=== PATIENT | female | born 1980 | race Caucasian/White ===

== ENCOUNTER 2017-06-16 00:06 | Inpatient (IN) | payer OTHER ==
[2017-06-16] MEDS ORDERED: ONDANSETRON 4 MG INJ IV (01:00)
[2017-06-16] MEDS: morphine 2 MG INJ IV ×4 (01:17→13:35)
[2017-06-16] MEDS: HYDROCODONE/APAP (5/325) TAB PO ×4 (02:02→19:15)
[2017-06-16] MEDS: SOD CHLORIDE 0.9% 1,000 ML IV ×2 (05:32→16:29)
[2017-06-16 05:58] LABS: ADD MAN DIFF? NO
[2017-06-16 06:05] LABS: BASOPHILS % 0.4 % (0.0-2.0); EOSINOPHILS # 0.2 10^3/ul (0.0-0.5); EOSINOPHILS % 2.5 % (0.0-7.0); HEMATOCRIT 34.2 % (37.0-47.0); HEMOGLOBIN 11.6 g/dl (12.0-16.0); LYMPHOCYTES # 2.8 10^3/ul (0.8-2.9); LYMPHOCYTES % 37.1 % (15.0-51.0); MEAN CORPUSCULAR HEMOGLOBIN 30.9 pg (29.0-33.0); MEAN CORPUSCULAR HGB CONC 33.9 g/dl (32.0-37.0); MEAN CORPUSCULAR VOLUME 91.2 fl (82.0-101.0); MEAN PLATELET VOLUME 10.2 fl (7.4-10.4); MONOCYTE # 0.5 10^3/ul (0.3-0.9); MONOCYTES % 6.8 % (0.0-11.0); NEUTROPHILS % 53.1 % (39.0-77.0); PLATELET COUNT 297 10^3/UL (140-415); RED BLOOD COUNT 3.75 10^6/ul (4.20-5.40)
[2017-06-16 06:05] LABS: WHITE BLOOD COUNT 7.5 10^3/ul (4.8-10.8)
[2017-06-16 06:27] LABS: ALANINE AMINOTRANSFERASE 23 IU/L (13-69); ALBUMIN 3.4 g/dl (3.3-4.9); ALBUMIN/GLOBULIN RATIO 0.97; ALKALINE PHOSPHATASE 83 IU/L (42-121); ANION GAP 15 (8-16); ASPARTATE AMINO TRANSFERASE 13 IU/L (15-46); BILIRUBIN,INDIRECT 0.1 mg/dl (0-1.1); BILIRUBIN,TOTAL 0.1 mg/dl (0.2-1.3); BLOOD UREA NITROGEN 11 mg/dl (7-20); CALCIUM 8.8 mg/dl (8.4-10.2); CARBON DIOXIDE 26 mmol/L (21-31); CHLORIDE 109 mmol/L (97-110); CREATININE 0.77 mg/dl (0.44-1.00); GLUCOSE 81 mg/dl (70-220); POTASSIUM 3.9 mmol/L (3.5-5.1); SODIUM 146 mmol/L (135-144); TOTAL PROTEIN 6.9 g/dl (6.1-8.1)
[2017-06-16 07:55] LABS: COMPLEMENT C3 127 mg/dl (88-165); COMPLEMENT C4 34 mg/dl (14-44)
[2017-06-16] MEDS: predniSONE 5 MG TAB PO (08:59)
[2017-06-16] MEDS: HEPARIN 5,000 UNIT/0.5 ML VIAL SC ×2 (09:00→20:05)
[2017-06-16 15:44] LABS: ADD UMIC NO; UR ASCORBIC ACID NEGATIVE (NEGATIVE); UR BILIRUBIN (Dip) NEGATIVE (NEGATIVE); UR BLOOD (Dip) NEGATIVE (NEGATIVE); UR CLARITY CLEAR (CLEAR); UR COLOR YELLOW (YELLOW); UR GLUCOSE (Dip) NEGATIVE (NEGATIVE); UR KETONES (Dip) NEGATIVE (NEGATIVE); UR LEUKOCYTE ESTERASE (Dip) NEGATIVE Leu/ul (NEGATIVE); UR NITRITE (Dip) NEGATIVE (NEGATIVE); UR SPECIFIC GRAVITY (Dip) 1.017 (1.003-1.030); UR TOTAL PROTEIN (Dip) NEGATIVE (NEGATIVE); UR UROBILINOGEN (Dip) 1+ mg/dL (NEGATIVE)
[2017-06-16] MEDS: HYDROmorphONE 0.5 MG/0.5 ML SYG IV ×3 (16:21→23:06)
[2017-06-16] MEDS ORDERED: HYDROCODONE/APAP (5/325) TAB PO (21:00)
[2017-06-16] MEDS ORDERED: ACETAMINOPHEN/CODEINE #3 TAB PO (21:00)
[2017-06-17] MEDS: HYDROCODONE/APAP (5/325) TAB PO ×4 (00:54→21:12)
[2017-06-17] MEDS: ALPRAZOLAM 0.5 MG TAB PO ×3 (00:59→20:57)
[2017-06-17] MEDS: HYDROmorphONE 0.5 MG/0.5 ML SYG IV ×7 (02:11→22:17)
[2017-06-17] MEDS: SOD CHLORIDE 0.9% 1,000 ML IV ×3 (02:11→14:11)
[2017-06-17] MEDS: predniSONE 5 MG TAB PO (08:56)
[2017-06-17] MEDS: HEPARIN 5,000 UNIT/0.5 ML VIAL SC ×2 (08:58→20:55)
[2017-06-17] MEDS: predniSONE 10 MG TAB PO (17:04)
[2017-06-17] MEDS: PANTOPRAZOLE (EC) 40 MG TAB PO (17:05)
[2017-06-17] MEDS: HYDROXYCHLOROQUINE 200 MG TAB PO (18:04)
[2017-06-18] MEDS: HYDROmorphONE 0.5 MG/0.5 ML SYG IV ×7 (01:31→22:06)
[2017-06-18] MEDS: HYDROCODONE/APAP (5/325) TAB PO ×3 (02:23→10:29)
[2017-06-18] MEDS: ALPRAZOLAM 0.5 MG TAB PO ×3 (06:29→22:51)
[2017-06-18] MEDS: HEPARIN 5,000 UNIT/0.5 ML VIAL SC ×2 (08:57→20:34)
[2017-06-18] MEDS: HYDROXYCHLOROQUINE 200 MG TAB PO (08:57)
[2017-06-18] MEDS: PANTOPRAZOLE (EC) 40 MG TAB PO (08:58)
[2017-06-18] MEDS: predniSONE 5 MG TAB PO (08:58)
[2017-06-18] MEDS: predniSONE 10 MG TAB PO (08:58)
[2017-06-18] MEDS: morphine (ER) 15 MG TAB PO ×2 (17:15→20:33)
[2017-06-19] MEDS: HYDROmorphONE 0.5 MG/0.5 ML SYG IV ×6 (01:00→23:33)
[2017-06-19] MEDS: HYDROCODONE/APAP (5/325) TAB PO ×4 (02:00→19:08)
[2017-06-19 05:10] LABS: ADD MAN DIFF? NO
[2017-06-19 05:13] LABS: WHITE BLOOD COUNT 13.7 10^3/ul (4.8-10.8)
[2017-06-19 05:13] LABS: BASOPHIL # 0.1 10^3/ul (0.0-0.1); BASOPHILS % 0.4 % (0.0-2.0); EOSINOPHILS # 0.1 10^3/ul (0.0-0.5); EOSINOPHILS % 0.5 % (0.0-7.0); HEMATOCRIT 33.4 % (37.0-47.0); HEMOGLOBIN 11.6 g/dl (12.0-16.0); LYMPHOCYTES # 3.5 10^3/ul (0.8-2.9); LYMPHOCYTES % 25.7 % (15.0-51.0); MEAN CORPUSCULAR HEMOGLOBIN 31.2 pg (29.0-33.0); MEAN CORPUSCULAR HGB CONC 34.7 g/dl (32.0-37.0); MEAN CORPUSCULAR VOLUME 89.8 fl (82.0-101.0); MEAN PLATELET VOLUME 10.5 fl (7.4-10.4); MONOCYTE # 0.7 10^3/ul (0.3-0.9); NEUTROPHIL # 9.2 10^3/ul (1.6-7.5); NEUTROPHILS % 67.6 % (39.0-77.0); PLATELET COUNT 296 10^3/UL (140-415); RED BLOOD COUNT 3.72 10^6/ul (4.20-5.40); RED CELL DISTRIBUTION WIDTH 12.9 % (11.5-14.5)
[2017-06-19 05:44] LABS: ALANINE AMINOTRANSFERASE 21 IU/L (13-69); ALBUMIN 3.8 g/dl (3.3-4.9); ALBUMIN/GLOBULIN RATIO 1.05; ALKALINE PHOSPHATASE 106 IU/L (42-121); ANION GAP 15 (8-16); ASPARTATE AMINO TRANSFERASE 14 IU/L (15-46); BLOOD UREA NITROGEN 12 mg/dl (7-20); CALCIUM 9.3 mg/dl (8.4-10.2); CARBON DIOXIDE 28 mmol/L (21-31); CHLORIDE 104 mmol/L (97-110); CREATININE 0.62 mg/dl (0.44-1.00); GLUCOSE 94 mg/dl (70-220); POTASSIUM 3.8 mmol/L (3.5-5.1); SODIUM 143 mmol/L (135-144); TOTAL PROTEIN 7.4 g/dl (6.1-8.1)
[2017-06-19 05:45] LABS: C-REACTIVE PROTEIN < 0.5 mg/dl (0.0-0.9)
[2017-06-19 06:44] LABS: ERYTHROCYTE SEDIMENTATION RATE 30 mm/Hr (0-20)
[2017-06-19] MEDS: ALPRAZOLAM 0.5 MG TAB PO ×2 (06:57→21:55)
[2017-06-19] MEDS: HEPARIN 5,000 UNIT/0.5 ML VIAL SC ×2 (09:12→20:40)
[2017-06-19] MEDS: HYDROXYCHLOROQUINE 200 MG TAB PO (09:12)
[2017-06-19] MEDS: predniSONE 20 MG TAB PO (09:13)
[2017-06-19] MEDS: morphine (ER) 15 MG TAB PO ×2 (09:13→21:54)
[2017-06-19] MEDS: PANTOPRAZOLE (EC) 40 MG TAB PO (09:13)
[2017-06-19] MEDS: HYDROmorphONE 2 MG/ML SYG IV (10:49)
[2017-06-20] MEDS: HYDROCODONE/APAP (5/325) TAB PO ×3 (00:03→10:20)
[2017-06-20] MEDS: HYDROmorphONE 0.5 MG/0.5 ML SYG IV ×7 (02:33→23:51)
[2017-06-20] MEDS ORDERED: MAGNESIUM HYDROXIDE 30ML CUP PO (06:30)
[2017-06-20] MEDS: HYDROXYCHLOROQUINE 200 MG TAB PO (08:28)
[2017-06-20] MEDS: SENNA TAB PO ×2 (08:29→20:02)
[2017-06-20] MEDS: PANTOPRAZOLE (EC) 40 MG TAB PO (08:29)
[2017-06-20] MEDS: morphine (ER) 15 MG TAB PO ×2 (08:29→22:46)
[2017-06-20] MEDS: HEPARIN 5,000 UNIT/0.5 ML VIAL SC ×2 (08:30→20:01)
[2017-06-20] MEDS: ALPRAZOLAM 0.5 MG TAB PO ×2 (10:20→18:43)
[2017-06-20] MEDS: NICOTINE (21 MG/24 HR) PATCH TRANSDERM (14:49)
[2017-06-20] MEDS: HYDROCODONE/APAP (7.5/325) TAB PO (14:50)
[2017-06-21] MEDS: HYDROmorphONE 0.5 MG/0.5 ML SYG IV ×5 (02:49→17:50)
[2017-06-21] MEDS: ALPRAZOLAM 0.5 MG TAB PO ×2 (03:50→15:43)
[2017-06-21] MEDS: HYDROCODONE/APAP (7.5/325) TAB PO ×2 (06:43→18:58)
[2017-06-21] MEDS: HYDROXYCHLOROQUINE 200 MG TAB PO (10:07)
[2017-06-21] MEDS: PANTOPRAZOLE (EC) 40 MG TAB PO (10:07)
[2017-06-21] MEDS: NICOTINE (21 MG/24 HR) PATCH TRANSDERM (10:07)
[2017-06-21] MEDS: morphine (ER) 15 MG TAB PO (10:07)
[2017-06-21] MEDS: SENNA TAB PO ×2 (10:07→20:39)
[2017-06-21] MEDS: HEPARIN 5,000 UNIT/0.5 ML VIAL SC ×2 (10:09→20:39)
== END 2017-06-21 20:40 | disposition home or self-care (01) | DRG 547 ==
LOC: PP2 00:06
DX: M32.9 Systemic lupus erythematosus, unspecified (principal); I10 Essential (primary) hypertension; G89.4 Chronic pain syndrome; Z79.52 Long term (current) use of systemic steroids; F41.8 Other specified anxiety disorders
CPT/HCPCS: 71045; 74176; 80053; 81003; 84703; 85025; 85651; 86038; 86140; 86160; 86226; 86235

== ENCOUNTER 2017-08-10 17:08 | Emergency (ER) | payer OTHER ==
[2017-08-10 18:29] LABS: ADD MAN DIFF? NO
[2017-08-10 18:30] LABS: BASOPHIL # 0.1 10^3/ul (0.0-0.1); BASOPHILS % 0.5 % (0.0-2.0); EOSINOPHILS # 0.1 10^3/ul (0.0-0.5); EOSINOPHILS % 0.6 % (0.0-7.0); HEMOGLOBIN 13.8 g/dl (12.0-16.0); LYMPHOCYTES # 4.1 10^3/ul (0.8-2.9); LYMPHOCYTES % 32.1 % (15.0-51.0); MEAN CORPUSCULAR HEMOGLOBIN 31.7 pg (29.0-33.0); MEAN CORPUSCULAR HGB CONC 33.7 g/dl (32.0-37.0); MEAN PLATELET VOLUME 10.2 fl (7.4-10.4); MONOCYTE # 0.8 10^3/ul (0.3-0.9); NEUTROPHIL # 7.8 10^3/ul (1.6-7.5); NEUTROPHILS % 60.3 % (39.0-77.0); PLATELET COUNT 256 10^3/UL (140-415); RED BLOOD COUNT 4.36 10^6/ul (4.20-5.40); RED CELL DISTRIBUTION WIDTH 14.3 % (11.5-14.5)
[2017-08-10 18:30] LABS: WHITE BLOOD COUNT 12.9 10^3/ul (4.8-10.8)
[2017-08-10 18:31] LABS: URINE PH (Dip) POC 5.5 (5.0-8.5)
[2017-08-10 18:31] LABS: URINE BLOOD (Dip) POC Negative (NEGATIVE); URINE GLUCOSE (Dip) POC Negative (NEGATIVE); URINE KETONES (Dip) POC Negative (NEGATIVE); URINE LEUKOCYTE EST (Dip) POC Negative (NEGATIVE); URINE NITRITE (Dip) POC Negative (NEGATIVE); URINE TOTAL PROTEIN POC Trace (NEGATIVE)
[2017-08-10] MEDS: SOD CHLORIDE 0.9% 1,000 ML IV ×2 (18:31→20:39)
[2017-08-10] MEDS: HYDROmorphONE 1 MG/5 ML IV SYRINGE IV (18:41)
[2017-08-10] MEDS: ONDANSETRON 4 MG INJ IV (18:41)
[2017-08-10 18:48] LABS: ALANINE AMINOTRANSFERASE 17 IU/L (13-69); ALBUMIN 3.3 g/dl (3.3-4.9); ALBUMIN/GLOBULIN RATIO 1.17; ALKALINE PHOSPHATASE 63 IU/L (42-121); ANION GAP 10 (8-16); ASPARTATE AMINO TRANSFERASE 10 IU/L (15-46); BILIRUBIN,INDIRECT 0.1 mg/dl (0-1.1); BILIRUBIN,TOTAL 0.1 mg/dl (0.2-1.3); BLOOD UREA NITROGEN 11 mg/dl (7-20); CALCIUM 8.2 mg/dl (8.4-10.2); CARBON DIOXIDE 27 mmol/L (21-31); CHLORIDE 103 mmol/L (97-110); CREATININE 0.76 mg/dl (0.44-1.00); GLUCOSE 71 mg/dl (70-220); LIPASE 65 U/L (23-300); POTASSIUM 3.5 mmol/L (3.5-5.1); SODIUM 136 mmol/L (135-144); TOTAL PROTEIN 6.1 g/dl (6.1-8.1)
[2017-08-10 19:00] LABS: TROPONIN-I < 0.012 ng/ml (0.00-0.12)
== END 2017-08-10 23:30 | disposition home or self-care (01) ==
LOC: E/R 17:08
DX: M32.9 Systemic lupus erythematosus, unspecified (principal); I10 Essential (primary) hypertension; Z87.891 Personal history of nicotine dependence
CPT/HCPCS: 36415; 71045; 80053; 81003; 81025; 83690; 84484; 85025; 93005; 96374; 96375; 99285-25

== ENCOUNTER 2017-11-30 21:44 | Inpatient (IN) | payer OTHER ==
[2017-11-30] MEDS: HYDROmorphONE 2 MG TAB PO (22:34)
[2017-12-01] MEDS: HYDROCODONE/APAP (5/325) TAB PO ×2 (00:12→05:20)
[2017-12-01] MEDS: LORAZEPAM 1 MG TAB PO ×2 (01:48→08:40)
[2017-12-01] MEDS ORDERED: NACL 0.9% 3 ML SYG IV (02:00)
[2017-12-01] MEDS ORDERED: ONDANSETRON 4 MG INJ IV (02:00)
[2017-12-01] MEDS ORDERED: ALBUTEROL/IPRATROPIUM (NEB) 3 ML AMP HHN (02:00)
[2017-12-01] MEDS ORDERED: ACETAMINOPHEN 325 MG TAB PO (02:00)
[2017-12-01] MEDS: HYDROmorphONE 2 MG TAB PO ×2 (02:26→08:33)
[2017-12-01] MEDS: PANTOPRAZOLE (EC) 40 MG TAB PO (05:20)
[2017-12-01 08:02] LABS: ADD MAN DIFF? NO
[2017-12-01 08:18] LABS: BASOPHILS % 0.2 % (0.0-2.0); HEMATOCRIT 33.9 % (37.0-47.0); HEMOGLOBIN 11.4 g/dl (12.0-16.0); LYMPHOCYTES # 1.5 10^3/ul (0.8-2.9); LYMPHOCYTES % 13.8 % (15.0-51.0); MEAN CORPUSCULAR HEMOGLOBIN 31.1 pg (29.0-33.0); MEAN CORPUSCULAR HGB CONC 33.6 g/dl (32.0-37.0); MEAN CORPUSCULAR VOLUME 92.6 fl (82.0-101.0); MONOCYTE # 0.5 10^3/ul (0.3-0.9); MONOCYTES % 4.7 % (0.0-11.0); NEUTROPHIL # 8.9 10^3/ul (1.6-7.5); NEUTROPHILS % 81.1 % (39.0-77.0); PLATELET COUNT 233 10^3/UL (140-415); RED BLOOD COUNT 3.66 10^6/ul (4.20-5.40); RED CELL DISTRIBUTION WIDTH 12.3 % (11.5-14.5)
[2017-12-01] MEDS: predniSONE 10 MG TAB PO (08:33)
[2017-12-01] MEDS: NICOTINE (21 MG/24 HR) PATCH TRANSDERM (08:33)
[2017-12-01] MEDS: FERROUS SULFATE (EC) 325 MG TAB PO (08:33)
[2017-12-01] MEDS: HEPARIN 5,000 UNIT/0.5 ML VIAL SC ×2 (08:40→21:04)
[2017-12-01 08:50] LABS: ALANINE AMINOTRANSFERASE 8 IU/L (13-69); ALBUMIN 3.5 g/dl (3.3-4.9); ALBUMIN/GLOBULIN RATIO 1.09; ALKALINE PHOSPHATASE 66 IU/L (42-121); ANION GAP 11 (8-16); ASPARTATE AMINO TRANSFERASE 12 IU/L (15-46); BLOOD UREA NITROGEN 10 mg/dl (7-20); CALCIUM 8.8 mg/dl (8.4-10.2); CARBON DIOXIDE 24 mmol/L (21-31); CHLORIDE 106 mmol/L (97-110); CREATININE 0.64 mg/dl (0.44-1.00); GLUCOSE 111 mg/dl (70-220); MAGNESIUM 1.6 mg/dl (1.7-2.5); PHOSPHORUS 2.9 mg/dl (2.5-4.9); SODIUM 137 mmol/L (135-144); TOTAL PROTEIN 6.7 g/dl (6.1-8.1)
[2017-12-01] MEDS ORDERED: HYDROXYCHLOROQUINE 200 MG TAB PO (09:00)
[2017-12-01] MEDS ORDERED: HYDROmorphONE 4 MG/ML SYG IV (12:30)
[2017-12-01] MEDS: HYDROmorphONE 2 MG/ML SYG IV ×3 (12:52→22:53)
[2017-12-01] MEDS ORDERED: oxyCODONE (20 MG/ML PO SYG) SL (13:30)
[2017-12-01] MEDS: predniSONE 5 MG TAB PO (15:25)
[2017-12-01 16:47] LABS: ADD UMIC YES; UR ASCORBIC ACID NEGATIVE (NEGATIVE); UR BILIRUBIN (Dip) NEGATIVE (NEGATIVE); UR BLOOD (Dip) 1+ mg/dL (NEGATIVE); UR CLARITY SLIGHTLY CLOUDY (CLEAR); UR COLOR YELLOW (YELLOW); UR GLUCOSE (Dip) NEGATIVE (NEGATIVE); UR KETONES (Dip) NEGATIVE (NEGATIVE); UR LEUKOCYTE ESTERASE (Dip) NEGATIVE Leu/ul (NEGATIVE); UR MUCUS FEW /HPF (NONE SEEN); UR NITRITE (Dip) NEGATIVE (NEGATIVE); UR RBC 1 /HPF (0-5); UR SPECIFIC GRAVITY (Dip) 1.013 (1.003-1.030); UR SQUAMOUS EPITHELIAL CELL FEW /HPF (FEW); UR TOTAL PROTEIN (Dip) NEGATIVE (NEGATIVE); UR UROBILINOGEN (Dip) NEGATIVE (NEGATIVE); UR WBC 4 /HPF (0-5)
[2017-12-01] MEDS ORDERED: FAMOTIDINE 20 MG TAB PO (21:00)
[2017-12-01] MEDS: oxyCODONE 5 MG TAB PO (21:03)
[2017-12-01 21:52] LABS: RHEUMATOID FACTOR NEGATIVE (NEGATIVE)
[2017-12-02] MEDS: oxyCODONE 5 MG TAB PO ×3 (00:57→20:10)
[2017-12-02] MEDS: HYDROmorphONE 2 MG/ML SYG IV ×5 (03:06→22:11)
[2017-12-02] MEDS: PANTOPRAZOLE (EC) 40 MG TAB PO (06:30)
[2017-12-02 07:19] LABS: ADD MAN DIFF? NO
[2017-12-02 07:29] LABS: WHITE BLOOD COUNT 10.1 10^3/ul (4.8-10.8)
[2017-12-02 07:29] LABS: BASOPHILS % 0.3 % (0.0-2.0); EOSINOPHILS % 0.4 % (0.0-7.0); HEMATOCRIT 34.1 % (37.0-47.0); HEMOGLOBIN 11.6 g/dl (12.0-16.0); LYMPHOCYTES # 2.5 10^3/ul (0.8-2.9); LYMPHOCYTES % 24.9 % (15.0-51.0); MEAN CORPUSCULAR HEMOGLOBIN 31.7 pg (29.0-33.0); MEAN CORPUSCULAR VOLUME 93.2 fl (82.0-101.0); MEAN PLATELET VOLUME 10.8 fl (7.4-10.4); MONOCYTE # 0.5 10^3/ul (0.3-0.9); NEUTROPHILS % 69.1 % (39.0-77.0); PLATELET COUNT 304 10^3/UL (140-415); RED BLOOD COUNT 3.66 10^6/ul (4.20-5.40); RED CELL DISTRIBUTION WIDTH 12.5 % (11.5-14.5)
[2017-12-02] MEDS: FERROUS SULFATE (EC) 325 MG TAB PO (08:12)
[2017-12-02] MEDS: predniSONE 10 MG TAB PO (08:13)
[2017-12-02] MEDS: HYDROXYCHLOROQUINE 200 MG TAB PO (08:13)
[2017-12-02] MEDS: NICOTINE (21 MG/24 HR) PATCH TRANSDERM (08:13)
[2017-12-02 08:17] LABS: ANION GAP 15 (8-16); BLOOD UREA NITROGEN 7 mg/dl (7-20); CALCIUM 9.2 mg/dl (8.4-10.2); CARBON DIOXIDE 26 mmol/L (21-31); CHLORIDE 106 mmol/L (97-110); CREATININE 0.67 mg/dl (0.44-1.00); GLUCOSE 103 mg/dl (70-220); MAGNESIUM 1.6 mg/dl (1.7-2.5); PHOSPHORUS 4.5 mg/dl (2.5-4.9); SODIUM 143 mmol/L (135-144)
[2017-12-02] MEDS: HEPARIN 5,000 UNIT/0.5 ML VIAL SC ×2 (08:17→20:17)
[2017-12-02] MEDS: MAGNESIUM SULFATE 2 GM/50 ML 50 ML IVPB (14:19)
[2017-12-02 14:21] LABS: ANA SCREEN NEGATIVE (NEGATIVE)
[2017-12-03] MEDS: HYDROmorphONE 2 MG/ML SYG IV ×3 (02:32→08:40)
[2017-12-03] MEDS: PANTOPRAZOLE (EC) 40 MG TAB PO (06:18)
[2017-12-03] MEDS: predniSONE 10 MG TAB PO (08:36)
[2017-12-03] MEDS: FERROUS SULFATE (EC) 325 MG TAB PO (08:36)
[2017-12-03] MEDS: HYDROXYCHLOROQUINE 200 MG TAB PO (08:36)
[2017-12-03] MEDS: NICOTINE (21 MG/24 HR) PATCH TRANSDERM (08:37)
[2017-12-03] MEDS: HEPARIN 5,000 UNIT/0.5 ML VIAL SC (08:38)
[2017-12-03] MEDS: oxyCODONE 5 MG TAB PO (11:25)
== END 2017-12-03 12:00 | disposition home or self-care (01) | DRG 556 ==
LOC: 2NE 21:44 → 5EC 12-01 16:40
DX: M79.7 Fibromyalgia (principal); M32.9 Systemic lupus erythematosus, unspecified; I10 Essential (primary) hypertension; F32.9 Major depressive disorder, single episode, unspecified; F41.9 Anxiety disorder, unspecified; G40.909 Epilepsy, unspecified, not intractable, without status epilepticus; G89.4 Chronic pain syndrome; F43.10 Post-traumatic stress disorder, unspecified; D63.8 Anemia in other chronic diseases classified elsewhere; R20.8 Other disturbances of skin sensation; F41.0 Panic disorder [episodic paroxysmal anxiety]; F17.210 Nicotine dependence, cigarettes, uncomplicated; Z76.5 Malingerer [conscious simulation]; Z87.442 Personal history of urinary calculi
CPT/HCPCS: 80048; 80053; 81001; 83735; 84100; 85025; 86038; 86430; 97161